=== PATIENT | female | born 1995 | race Asian ===

== ENCOUNTER 2018-08-25 07:14 | Day surgery (SDC) | payer BC ==
[2018-08-25] MEDS ORDERED: PROPOFOL 60 ML (08:18)
[2018-08-25] MEDS ORDERED: LIDOCAINE 2% (SDV) 5 ML INJ (08:18)
== END 2018-08-25 10:50 | disposition home or self-care (01) ==
LOC: GIL 07:14
DX: K29.50 Unspecified chronic gastritis without bleeding (principal); R19.4 Change in bowel habit
CPT/HCPCS: 43239; 84703; 88305; 88312